=== PATIENT | female | born 1965 | race Caucasian/White ===

== ENCOUNTER 2021-03-09 18:05 | Inpatient (IN) | payer MEDICAID ==
[~2021-03-09] VITALS: Ht 167.6 cm; Wt 69.9 kg
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
--- NOTE | 2021-03-09 18:21 | RAD ---
Exam: CT head INDICATION: Unresponsive TECHNIQUE: Sequential axial images through the head were obtained without the administration of IV co ntrast. Exposure: One or more of the following in the visualized dose reduction techniques were utilized for this examination: 1. Automated exposure control 2. Adjustment of the MA and/or KV according to patient size 3. Use of iterative of reconstructive technique Comparisons: None FINDINGS: No focal parenchymal lesion or hemorrhage is identified. There is no midline shift or sulcal effaceme nt. Moderate patchy hypodensity in the periventricular white matter. No acute vascular territory infarcti on is identified. Reyes-white distinction is preserved. The ventricular system is within normal limits without compression hydrocephalus. The basal cisterns are well maintained. The visualized portions of the paranasal sinuses and mastoid air cells are well-pneumatized. No acute fractures. IMPRESSION: No acute hemorrhage. Moderate small vessel ischemic change technically age indeterminate without rece nt prior imaging. FOR INTERNAL CODING PURPOSES Critical result: Findings discussed with Clement at 03/09/2021 6:17 PM. RESULT CODE: (C) Electronically signed by: Miller Mena MD (03/09/2021 6:19 PM) CRISELDA
--- NOTE | 2021-03-09 18:36 | EKG ---
[address] [address] Test Date: 2021-03-09 Test Time: 18:08:06 Pat Name: LIZA ACE Department: Room: Gender: F Senior Interactive Developer: YESSICA : 1965 Requested By: SANTANA REED Order Number: [id number] Reading MD: Measurements Intervals [place] Rate: 64 P: 62 DE: 160 QRS: 264 QRSD: 124 T: 21 QT: 526 QTc: 548 Interpretive Statements SINUS RHYTHM LOW LIMB LEAD VOLTAGE LEFT ANTERIOR FASCICULAR BLOCK RIGHT BUNDLE BRANCH BLOCK BIFASCICULAR BLOCK CONSIDER RIGHT VENTRICULAR HYPERTROPHY ABNORMAL ECG RI6.02 No previous ECG available for comparison
[2021-03-09 18:41] LABS: BASO % 0 % (0-3); EOS # 0.2 x10^3/uL (0.0-0.7); EOS % 3 % (0-3); HEMATOCRIT 33.5 % (36.0-47.0); HEMOGLOBIN 11.6 g/dL (12.0-15.5); LYMPH # 2.6 x10^3/uL (1.0-4.8); LYMPH % 30 % (24-48); MEAN CORPUSCULAR HEMOGLOBIN 32 pg (25-35); MEAN CORPUSCULAR HGB CONC 35 g/dL (31-37); MEAN CORPUSCULAR VOLUME 93 fL (79-100); MONO # 0.7 x10^3/uL (0.0-1.1); MONO % 9 % (0-9); NEUT # 5.1 x10^3uL (1.8-7.7); NEUT % 59 % (31-73); PLATELET COUNT 280 x10^3/uL (140-400); RED BLOOD COUNT 3.59 x10^6/uL (3.50-5.40); RED CELL DISTRIBUTION WIDTH 15.6 % (11.5-14.5); WHITE BLOOD COUNT 8.7 x10^3/uL (4.0-11.0)
--- NOTE | 2021-03-09 18:49 | RAD ---
EXAM: AP View of the chest DATE: 03/09/2021 6:35 PM INDICATION: Reason: seizure, dyspnea / Spl. Instructions: / History: COMPARISON: No Prior FINDINGS: The heart is not enlarged. Mediastinal and hilar contours are normal. No focal parenchymal airspace opacity. No pleural effusion or pneumothorax. IMPRESSION: 1. No radiographic evidence for acute cardiopulmonary process. Electronically signed by: Chato Fajardo MD (03/09/2021 6:46 PM) SHEY
[2021-03-09 18:58] LABS: ANION GAP 12 (6-14); BLOOD UREA NITROGEN 15 mg/dL (7-20); CALCIUM 9.7 mg/dL (8.5-10.1); CARBON DIOXIDE 29 mmol/L (21-32); CHLORIDE 101 mmol/L (98-107); CREATININE 1.2 mg/dL (0.6-1.0); GFR 46.5; GLUCOSE 94 mg/dL (70-99); POTASSIUM 3.8 mmol/L (3.5-5.1); SODIUM 142 mmol/L (136-145)
[2021-03-09] MEDS: IV RINGERS SOLUTION,LACTATED 1,000 ML IV SCH (18:58)
[2021-03-09] MEDS ORDERED: ASPIRIN CHEWABLE 81 MG TABLET. PO ONE (19:00)
[2021-03-09 19:14] LABS: ALBUMIN 4.2 g/dL (3.4-5.0); ALK PHOS 62 U/L (46-116); ALT (SGPT) 56 U/L (14-59); AST (SGOT) 69 U/L (15-37); DIRECT BILIRUBIN 0.1 mg/dL (0.0-0.2); LIPASE 131 U/L (73-393); MAGNESIUM 2.4 mg/dL (1.8-2.4); TOTAL BILIRUBIN 0.4 mg/dL (0.2-1.0); TOTAL PROTEIN 7.3 g/dL (6.4-8.2)
[2021-03-09 19:15] LABS: PHENY < 0.5 mcg/mL (10.0-20.0)
[2021-03-09 19:29] LABS: BGAS PH 7.46 (7.35-7.45)
[2021-03-09] MEDS ORDERED: ASPIRIN 325 MG TABLET ONE (19:31)
[2021-03-09 19:40] LABS: BARBITURATES NEG (NEG); BENZODIAZEPINES NEG (NEG); CANNABINOIDS NEG (NEG); COCAINE NEG (NEG); METHADONE NEG (NEG); OPIATES NEG (NEG); PHENCYCLIDINE NEG (NEG)
[2021-03-09 19:42] LABS: AMPHETAMINE/METHAMPHETAMINE NEG (NEG); BILIRUBIN,URINE NEG (NEG); CLARITY,URINE CLEAR; COLOR,URINE AMBER; GLUCOSE,URINE NEG (NEG)
[2021-03-09 19:43] LABS: NITRITE,URINE NEG (NEG); UROBILINOGEN,URINE 0.2 mg/dL (0.2 mg/dL)
[2021-03-09 19:44] LABS: BACTERIA,URINE 0 /HPF (0-FEW); WBC,URINE RARE /HPF (0-4)
[2021-03-09] MEDS ORDERED: ASPIRIN 325 MG TABLET PO ONE (20:00)
[2021-03-09] MEDS ORDERED: IV NORMAL SALINE 100ML 100 ML ONE (20:39)
[2021-03-09] MEDS ORDERED: levETIRAcetam 500 MG/5 ML VIAL IV ONE (20:39)
[2021-03-09] MEDS ORDERED: ONDANSETRON PF 4 MG/2 ML VIAL. IVP PRN (20:45)
[2021-03-09] MEDS: IPRATRPIUM/ALBUTEROL 0.5/2.5MG 3 ML NEBU. NEB SCH (21:00)
[2021-03-09 23:30] VITALS: BP 133/74
[2021-03-10] MEDS ORDERED: BACI3.5O8 TOP (00:25)
[2021-03-10] MEDS ORDERED: EZET1TAB35 PO (00:47)
[2021-03-10] MEDS ORDERED: GABA600T7 PO (00:47)
[2021-03-10] MEDS ORDERED: DIAZ5TAB4 PO (00:47)
[2021-03-10] MEDS ORDERED: NAPR-695 PO (00:47)
[2021-03-10] MEDS ORDERED: MONT10TA80 PO (00:47)
[2021-03-10] MEDS ORDERED: FLUO20CA20 PO (00:47)
[2021-03-10] MEDS ORDERED: LEVO150T5 PO (00:47)
[2021-03-10] MEDS ORDERED: DULO60CA6 PO (00:47)
[2021-03-10] MEDS ORDERED: HYDR-2769 PO (00:47)
[2021-03-10] MEDS ORDERED: LACO200T PO ×2 (00:47→10:20)
[2021-03-10] MEDS ORDERED: METO50TA29 PO (00:47)
[2021-03-10] MEDS ORDERED: LEVE10007 PO (00:47)
[2021-03-10] MEDS: IV RINGERS SOLUTION,LACTATED 1,000 ML IV SCH (01:14)
[2021-03-10 06:21] VITALS: BP 123/73
[2021-03-10] MEDS: HYDROcodone/APAP 10/325 1 TAB TABLET PO PRN ×2 (07:41→17:34)
[2021-03-10 07:54] LABS: BASO # 0.1 x10^3/uL (0.0-0.2); BASO % 1 % (0-3); EOS # 0.3 x10^3/uL (0.0-0.7); EOS % 4 % (0-3); HEMATOCRIT 33.9 % (36.0-47.0); HEMOGLOBIN 11.5 g/dL (12.0-15.5); LYMPH # 2.1 x10^3/uL (1.0-4.8); LYMPH % 28 % (24-48); MEAN CORPUSCULAR HEMOGLOBIN 32 pg (25-35); MEAN CORPUSCULAR HGB CONC 34 g/dL (31-37); MEAN CORPUSCULAR VOLUME 94 fL (79-100); MONO # 0.6 x10^3/uL (0.0-1.1); MONO % 8 % (0-9); NEUT # 4.3 x10^3uL (1.8-7.7); NEUT % 59 % (31-73); PLATELET COUNT 271 x10^3/uL (140-400); RED BLOOD COUNT 3.61 x10^6/uL (3.50-5.40); RED CELL DISTRIBUTION WIDTH 15.8 % (11.5-14.5); WHITE BLOOD COUNT 7.4 x10^3/uL (4.0-11.0)
[2021-03-10] MEDS: IPRATRPIUM/ALBUTEROL 0.5/2.5MG 3 ML NEBU. NEB SCH (08:00)
[2021-03-10] MEDS ORDERED: ACET325T21 PO (10:20)
[2021-03-10] MEDS ORDERED: DOXY100C2 PO (10:20)
[2021-03-10] MEDS ORDERED: DIVA500T17 PO (10:20)
[2021-03-10] MEDS ORDERED: SENN8.6T11 PO (10:20)
[2021-03-10] MEDS ORDERED: IPRATRPIUM/ALBUTEROL 0.5/2.5MG 3 ML NEBU. NEB PRN (11:00)
[2021-03-10 11:21] VITALS: BP 143/73
[2021-03-10] MEDS ORDERED: ACETAMINOPHEN 325 MG TABLET PO PRN (12:15)
[2021-03-10 13:08] LABS: CALCIUM 8.7 mg/dL (8.5-10.1); CREATININE 1.1 mg/dL (0.6-1.0); GFR 51.4; POTASSIUM 3.6 mmol/L (3.5-5.1)
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
[2021-03-10] MEDS: GABAPENTIN 300 MG CAPSULE. PO SCH ×2 (15:54→20:20)
[2021-03-10] MEDS: diazePAM 5 MG TABLET. PO SCH ×2 (15:54→20:21)
[2021-03-10 16:21] VITALS: BP 135/73
[2021-03-10 19:25] VITALS: BP 114/64
[2021-03-10] MEDS: LACOSAMIDE 50 MG TABLET PO SCH (20:20)
[2021-03-10] MEDS: DIVALPROEX SODIUM 250 MG TABLET.DR. PO SCH (20:20)
[2021-03-10] MEDS: levETIRAcetam 500 MG TABLET PO SCH (20:21)
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
[2021-03-10] MEDS ORDERED: SIMVASTATIN PO SCH (21:00)
[2021-03-10] MEDS ORDERED: SIMVASTATIN 40 MG TABLET. PO SCH (21:00)
[2021-03-10] MEDS ORDERED: EZETIMIBE PO SCH (21:00)
[2021-03-10] MEDS ORDERED: EZETIMIBE 10 MG TABLET PO SCH (21:00)
[2021-03-11] MEDS: HYDROcodone/APAP 10/325 1 TAB TABLET PO PRN (05:27)
[2021-03-11 05:45] VITALS: BP 127/71
[2021-03-11] MEDS ORDERED: LEVOTHYROXINE 137 MCG TABLET PO SCH (06:00)
[2021-03-11] MEDS ORDERED: SENNOSIDES 8.6 MG TABLET PO SCH (09:00)
[2021-03-11] MEDS: diazePAM 5 MG TABLET. PO SCH (09:17)
[2021-03-11] MEDS: GABAPENTIN 300 MG CAPSULE. PO SCH (09:17)
[2021-03-11] MEDS: levETIRAcetam 500 MG TABLET PO SCH (09:17)
[2021-03-11] MEDS: LACOSAMIDE 50 MG TABLET PO SCH (09:18)
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
[2021-03-11] MEDS: DIVALPROEX SODIUM 250 MG TABLET.DR. PO SCH (10:08)
[2021-03-11] MEDS ORDERED: LEVE500T56 PO (10:08)
[2021-03-11 10:43] VITALS: BP 147/74
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
--- NOTE | 2021-03-12 02:57 | PN ---
DATE: 03/11/2021 SUBJECTIVE: The patient denies any new medical or neurological complaints. She has not had seizure since admission. The patient has been very anxious and paranoid this morning. OBJECTIVE: GENERAL: Well-developed, well-nourished female, in no acute distress. VITAL SIGNS: Blood pressure 127/71, respiratory rate 18, pulse is 48, oxygen saturation is 95% on room air and temperature is 97.6. HEENT: Normocephalic, atraumatic, otherwise unremarkable. NECK: Supple. Negative for carotid bruit, lymphadenopathy or thyromegaly. LUNGS: Lung sounds clear to A and P. CARDIOVASCULAR: Regular rate and rhythm. Normal S1, S2. There is no S3, S4 or murmur. ABDOMEN: Soft. Bowel sounds positive. EXTREMITIES: Negative for cyanosis, clubbing or pedal edema. NEUROLOGICAL: Mental status: The patient is alert and oriented x 2. The speech is fluent. There is no language dysfunctions. Memory, judgment and abstracting thinkings are fair. The patient denies hallucination or delusion. The cranial nerves are grossly intact except for the right hemianopsia. Motor examination revealed left hemiparesis and left hemisensory deficits. Deep tendon reflexes were symmetric and hypoactive with absent Achilles responses. Gait not tested. IMPRESSION: 1. Breakthrough seizure. The patient has longstanding history of a seizure, probably due to a previous stroke. 2. Multiple medical problems include diabetes mellitus, question multiple sclerosis, hypertension, hyperlipidemia, stroke with left hemiparesis. RECOMMENDATION: Continue with current medical care initiated by Dr. Solis. FREDDIE/JOSH/DEBBIE DR: Sybil TID: [id number]
== END 2021-03-11 13:05 | disposition home or self-care (01) | DRG 101 ==
LOC: EDBD 18:05 → ER 18:05 → 1 SOUTH 20:36
PROVIDERS: ADMIT Internal Medicine; ATTEND Internal Medicine
DX: G40.909 Epilepsy, unspecified, not intractable, without status epilepticus (principal); I69.354 Hemiplegia and hemiparesis following cerebral infarction affecting left non-dominant side; F17.210 Nicotine dependence, cigarettes, uncomplicated; I10 Essential (primary) hypertension; E11.42 Type 2 diabetes mellitus with diabetic polyneuropathy; E03.9 Hypothyroidism, unspecified; G35 Multiple sclerosis; E78.5 Hyperlipidemia, unspecified; D63.8 Anemia in other chronic diseases classified elsewhere; M41.9 Scoliosis, unspecified; M81.0 Age-related osteoporosis without current pathological fracture; R13.10 Dysphagia, unspecified; Z90.49 Acquired absence of other specified parts of digestive tract; Z93.3 Colostomy status; Z88.5 Allergy status to narcotic agent; Z91.19 Patient's noncompliance with other medical treatment and regimen; Z91.14 Patient's other noncompliance with medication regimen; Z90.710 Acquired absence of both cervix and uterus; Z85.038 Personal history of other malignant neoplasm of large intestine; Z80.7 Family history of other malignant neoplasms of lymphoid, hematopoietic and related tissues; Z20.822 Contact with and (suspected) exposure to COVID-19
CPT/HCPCS: 36415; 51702; 70450; 71045; 80048; 80076; 80185; 80307; 81001; 82550; 82803; 82947; 83605; 83690; 83735; 83880; 84443; 84484; 85025; 85379; 85610; 85730; 87040; 93005; 96365; 96375; G0480; J1953; J2060; J7120; U0003; 97116; 97530; 99285-25

== ENCOUNTER 2021-03-14 17:21 | Emergency (ER) | payer MEDICAID ==
[~2021-03-14] VITALS: Ht 167.6 cm; Wt 69.9 kg
[~2021-03-14 17:21] MED LIST: ACET325T21 PO; BACI3.5O8 TOP; DIAZ5TAB4 PO; DIVA500T17 PO; DOXY100C2 PO; DULO60CA6 PO; EZET1TAB35 PO; FLUO20CA20 PO; GABA600T7 PO; HYDR-2769 PO; LACO200T PO; LEVE10007 PO; LEVE500T56 PO; LEVO150T5 PO; METO50TA29 PO; MONT10TA80 PO; NAPR-695 PO; SENN8.6T11 PO
[2021-03-14] MEDS ORDERED: IV NORMAL SALINE 1,000ML 1,000 ML IV ONE (18:00)
--- NOTE | 2021-03-14 18:26 | RAD ---
XR CHEST 1V History: Reason: abdominal pain / Spl. Instructions: / History: Comparison: March 09, 2021 Findings: No consolidation or pleural effusion. Normal heart size. No pneumothorax. Impression: 1. No acute cardiopulmonary process. Electronically signed by: Ishmael Araujo DO (03/14/2021 6:23 PM) [facility]
[2021-03-14 18:39] LABS: BASO % 0 % (0-3); EOS # 0.2 x10^3/uL (0.0-0.7); EOS % 2 % (0-3); HEMOGLOBIN 11.7 g/dL (12.0-15.5); LYMPH # 2.2 x10^3/uL (1.0-4.8); LYMPH % 22 % (24-48); MEAN CORPUSCULAR HEMOGLOBIN 32 pg (25-35); MEAN CORPUSCULAR HGB CONC 34 g/dL (31-37); MEAN CORPUSCULAR VOLUME 95 fL (79-100); MONO # 0.5 x10^3/uL (0.0-1.1); MONO % 5 % (0-9); NEUT % 71 % (31-73); PLATELET COUNT 256 x10^3/uL (140-400); RED BLOOD COUNT 3.67 x10^6/uL (3.50-5.40); RED CELL DISTRIBUTION WIDTH 15.9 % (11.5-14.5); WHITE BLOOD COUNT 9.9 x10^3/uL (4.0-11.0)
--- NOTE | 2021-03-14 18:39 | RAD ---
CT ABDOMEN+PELVIS WO History: Reason: abdominal pain / Spl. Instructions: / History: Technique: Noncontrast examination of the abdomen and pelvis. Coronal and sagittal reconstructions we re performed. Exposure: One or more of the following individualized dose reduction techniques were utilized for thi s examination: 1. Automated exposure control 2. Adjustment of the mA and/or kV according to patient size 3. Use of iterative reconstruction technique. Comparison: March 05, 2021 Findings: Lower chest: No consolidation or pleural effusion. Abdomen and pelvis: The liver, spleen, adrenal glands, and pancreas are unremarkable. Prior cholecyst ectomy. Lobulated appearance of the right kidney with multiple cortical defects, may relate to prior insult o r infarct. Nonobstructing right intrarenal calculi. No hydronephrosis. Mild urinary bladder wall thic kening. Small pelvic free fluid. Prior hysterectomy. Left lower quadrant colostomy. Normal appendix. No evidence of bowel obstruction. Parastomal hernia c ontaining loops of small bowel. No pneumatosis. No pneumoperitoneum. Small inguinal lymph nodes, unch anged. Anterior abdominal wall subcutaneous fat infiltration, similar compared to prior. Atheromatous plaque throughout the nonaneurysmal abdominal aorta and branch vessels. Bones: No pathologic osseous lesions. Impression: 1. Mild urinary bladder wall thickening. Correlate for cystitis. 2. Small pelvic free fluid. 3. Left lower quadrant colostomy with parastomal hernia containing small bowel. No evidence of small bowel obstruction. 4. Nonobstructed right intrarenal calculi. Electronically signed by: Ishmael Araujo DO (03/14/2021 6:37 PM) [facility]
[2021-03-14 18:52] LABS: ALBUMIN 3.9 g/dL (3.4-5.0); ALBUMIN/GLOBULIN RATIO 1.1 (1.0-1.7); CALCIUM 8.9 mg/dL (8.5-10.1); CREATININE 1.1 mg/dL (0.6-1.0); GFR 51.4; POTASSIUM 3.9 mmol/L (3.5-5.1); TOTAL BILIRUBIN 0.2 mg/dL (0.2-1.0); TOTAL PROTEIN 7.3 g/dL (6.4-8.2)
--- NOTE | 2021-03-14 18:57 | PHYS DOC ---
Past History Past Medical History: Cancer, Seizure Past Surgical History: No Surgical History Additional Past Surgical Histo: PT UNABLE TO RESPOND Alcohol Use: None General Adult EDM: Chief Complaint: ABDOMINAL PAIN HPI: HPI: Patient is a 55-year-old female who presents with abdominal pain. Patient was seen and Dr. Mari's office and sent to the emergency room for admission. "I was admitted a few days ago and saw Dr. Du who told may need to follow-up with my PCP". "When I saw Dr. Mari today for my follow-up he told me I needed to be admitted to the hospital and have hernia surgery". Review of Systems: Review of Systems: Constitutional: Denies fever or chills Eyes: Denies change in visual acuity HENT: Denies nasal congestion or sore throat Respiratory: Denies cough or shortness of breath Cardiovascular: Denies chest pain or edema GI: Denies abdominal pain, nausea, vomiting, bloody stools or diarrhea : Denies dysuria Musculoskeletal: Denies back pain or joint pain Integument: Denies rash Neurologic: Denies headache, focal weakness or sensory changes Endocrine: Denies polyuria or polydipsia Lymphatic: Denies swollen glands Psychiatric: Denies depression or anxiety Current Medications: Current Meds: Current Medications Medications (Trade) Dose Ordered Sig/Stella Start Time Stop Time Status Last Admin Dose Admin Sodium Chloride 1,000 ml @ 1,000 mls/hr 1X ONCE 03/14/21 18:00 03/14/21 18:59 03/14/21 18:43 1,000 MLS/HR Allergies: Allergies: Allergies Coded Allergies Type Severity Reaction Last Updated Verified adhesive Allergy Intermediate 03/10/21 Yes morphine Allergy Intermediate 03/10/21 Yes Physical Exam: PE: Constitutional: Well developed, well nourished, no acute distress, non-toxic appearance. [] HENT: Normocephalic, atraumatic, bilateral external ears normal, oropharynx moist, no oral exudates, nose normal. [] Eyes: PERRLA, EOMI, conjunctiva normal, no discharge. [] Neck: Normal range of motion, no tenderness, supple, no stridor. [] Cardiovascular:Heart rate regular rhythm, no murmur [] Lungs & Thorax: Bilateral breath sounds clear to auscultation [] Abdomen: Bowel sounds normal, soft, no tenderness, no masses, no pulsatile masses. [] Skin: Warm, dry, no erythema, no rash. [] Back: No tenderness, no CVA tenderness. [] Extremities: No tenderness, no cyanosis, no clubbing, ROM intact, no edema. [] Neurologic: Alert and oriented X 3, normal motor function, normal sensory function, no focal deficits noted. [] Psychologic: Affect normal, judgement normal, mood normal. [] Current Patient Data: Labs: Laboratory Tests Test 03/14/21 18:21 White Blood Count 9.9 x10^3/uL (4.0-11.0) Red Blood Count 3.67 x10^6/uL (3.50-5.40) Hemoglobin 11.7 g/dL (12.0-15.5) L Hematocrit 35.0 % (36.0-47.0) L Mean Corpuscular Volume 95 fL (79-100) Mean Corpuscular Hemoglobin 32 pg (25-35) Mean Corpuscular Hemoglobin Concent 34 g/dL (31-37) Red Cell Distribution Width 15.9 % (11.5-14.5) H Platelet Count 256 x10^3/uL (140-400) Neutrophils (%) (Auto) 71 % (31-73) Lymphocytes (%) (Auto) 22 % (24-48) L Monocytes (%) (Auto) 5 % (0-9) Eosinophils (%) (Auto) 2 % (0-3) Basophils (%) (Auto) 0 % (0-3) Neutrophils # (Auto) 7.0 x10^3uL (1.8-7.7) Lymphocytes # (Auto) 2.2 x10^3/uL (1.0-4.8) Monocytes # (Auto) 0.5 x10^3/uL (0.0-1.1) Eosinophils # (Auto) 0.2 x10^3/uL (0.0-0.7) Basophils # (Auto) 0.0 x10^3/uL (0.0-0.2) Vital Signs: Vital Signs Date Time Temp Pulse Resp B/P (MAP) Pulse Ox O2 Delivery O2 Flow Rate FiO2 03/14/21 18:45 98.4 78 16 141/64 (89) 98 Room Air EKG: EKG: [] Radiology/Procedures: Radiology/Procedures: [] CT ABDOMEN+PELVIS WO History: Reason: abdominal pain / Spl. Instructions: / History: Technique: Noncontrast examination of the abdomen and pelvis. Coronal and sagittal reconstructions were performed. Exposure: One or more of the following individualized dose reduction techniques were utilized for this examination: 1. Automated exposure control 2. Adjustment of the mA and/or kV according to patient size 3. Use of iterative reconstruction technique. Comparison: March 05, 2021 Findings: Lower chest: No consolidation or pleural effusion. Abdomen and pelvis: The liver, spleen, adrenal glands, and pancreas are unremarkable. Prior cholecystectomy. Lobulated appearance of the right kidney with multiple cortical defects, may relate to prior insult or infarct. Nonobstructing right intrarenal calculi. No hydronephrosis. Mild urinary bladder wall thickening. Small pelvic free fluid. Prior hysterectomy. Left lower quadrant colostomy. Normal appendix. No evidence of bowel obstruction. Parastomal hernia containing loops of small bowel. No pneumatosis. No pneumoperitoneum. Small inguinal lymph nodes, unchanged. Anterior abdominal wall subcutaneous fat infiltration, similar compared to prior. Atheromatous plaque throughout the nonaneurysmal abdominal aorta and branch vessels. Bones: No pathologic osseous lesions. Impression: 1. Mild urinary bladder wall thickening. Correlate for cystitis. 2. Small pelvic free fluid. 3. Left lower quadrant colostomy with parastomal hernia containing small bowel. No evidence of small bowel obstruction. 4. Nonobstructed right intrarenal calculi. XR CHEST 1V History: Reason: abdominal pain / Spl. Instructions: / History: Comparison: March 09, 2021 Findings: No consolidation or pleural effusion. Normal heart size. No pneumothorax. Impression: 1. No acute cardiopulmonary process. Electronically signed by: Ishmael Araujo DO (03/14/2021 6:23 PM) [facility] Heart Score: C/O Chest Pain: No Risk Factors: Risk Factors: DM, Current or recent (<one month) smoker, HTN, HLP, family history of CAD, obesity. Risk Scores: Score 0 - 3: 2.5% MACE over next 6 weeks - Discharge Home Score 4 - 6: 20.3% MACE over next 6 weeks - Admit for Clinical Observation Score 7 - 10: 72.7% MACE over next 6 weeks - Early Invasive Strategies Course & Med Decision Making: Course & Med Decision Making Pertinent Labs and Imaging studies reviewed. (See chart for details) [] 55-year-old female presents with abdominal pain. Patient was discharged after being seen by Dr. Du as an inpatient. Patient followed up with PCP today who told her to come to the emergency room to have a CT done. CT of her a bdomen was negative for bowel obstruction or any acute abnormalities. Patient is concerned about her hernia and under the impression she was going to be transferred to [place] or to have hernia repaired. Discussed CT results with patient and explained there were no acute reasons to have hernia surgery on that she would need to be referred to a surgeon on an outpatient basis. Patient is giving the impression that she wants to be admitted to the hospital to avoid being at her sisters. Patient's urine is positive for infection. Patient given 1 g of Rocephin in the emergency room to treat UTI. All other labs are unremarkable. Patient is hemodynamically stable. Patient is appreciative and okay with discharge plan. Luz Maria Disclaimer: Luz Maria Disclaimer: This electronic medical record was generated, in whole or in part, using a voice recognition dictation system. Departure Departure: Impression: Primary Impression: UTI (urinary tract infection) Qualified Codes: N30.00 - Acute cystitis without hematuria Disposition: HOME / SELF CARE / HOMELESS Condition: STABLE Referrals: ARIA,SONIA L MD (PCP) Patient Instructions: Urinary Tract Infection, [id number] Additional Instructions: You were seen in the emergency room due to concerns of your hernia. CT results are negative for any acute abnormalities at this time. This is something that you will need to follow-up with a surgeon on an outpatient basis. All of your other labs were unremarkable. Your urine was positive for infection. You were given medication in the emergency room to treat UTI. Please follow-up with Dr. Mari for further management and referral for surgery. Return to the em ergency room if you have worsening symptoms or concerns. EMERGENCY DEPARTMENT GENERAL DISCHARGE INSTRUCTIONS Thank you for coming to [facility] (ED) today and trusting us with you care. We trust that you had a positivie experience in our Emergency Department. If you wish to speak to the department management, you may call the director at [phone]. YOUR FOLLOW UP INSTRUCTIONS ARE FOLLOWS: 1. Do you have a private Doctor? If you do not have a private doctor, please ask for a resource list of physicians or clinics that may be able to assist you with follow up care. 2. The Emergency Physician has interpreted your x-rays. The X-Ray specialist will also review them. If there is a change in the findings, you will be notified in 48 hours when at all possible. 3. A lab test or culture has been done, your results will be reviewed and you will be notified if you need a change in treatment. ADDITIONAL INSTRUCTIONS AND INFORMATION: 1. Your care today has been supervised by a physician who is specially trained in emergency care. Many problems require more than one evaluation for a complete diagnosis and treatment. We recommend that you schedule your follow up appointment as recommended to ensure complete treatment of you illness or injury. If you are unable to obtain follow up care and continue to have a problem, or if your condition worsens, we recommend that you return to the ED. 2. We are not able to safely determine your condition over the phone nor are we able to give sound medical advice over the phone. For these safety reasons, if you call for medical advice we will ask you to come to the ED for further evaluation. 3. If you have any questions regarding these discharge instructions please call the ED at [phone]. SAFETY INFORMATION: In the interest of safety, wellness, and injury prevention; we encourage you to wear your sealbelt, if you smoke; quite smoking, and we encourage family to use a protective helmet for bicycling and other sporting events that present an increased risk for head injury. IF YOUR SYMPTOMS WORSEN OR NEW SYMPTOMS DEVELOP, OR YOU HAVE CONCERNS ABOUT YOUR CONDITION; OR IF YOUR CONDITION WORSENS WHILE YOU ARE WAITING FOR YOUR FOLLOW UP APPOINTMENT; EITHER CONTACT YOUR PRIMARY CARE DOCTOR, THE PHYSICIAN WHOSE NAME AND NUMBER YOU WERE GIVEN, OR RETURN TO THE ED IMMEDIATELY. GERARD ALFONSO APRN Mar 14, 2021 18:57
[2021-03-14 19:58] LABS: BILIRUBIN,URINE NEG (NEG); CLARITY,URINE CLOUDY; COLOR,URINE YELLOW; GLUCOSE,URINE NEG (NEG)
[2021-03-14 19:59] LABS: NITRITE,URINE POS (NEG); UROBILINOGEN,URINE 0.2 mg/dL (0.2 mg/dL)
[2021-03-14 20:13] LABS: WBC,URINE THTC /HPF (0-4)
[2021-03-14 20:14] LABS: BACTERIA,URINE MANY /HPF (0-FEW); SQUAMOUS EPITHELIAL CELL,UR OCC /LPF
[2021-03-14] MEDS ORDERED: cefTRIAXone IM 1 GM VIAL IM ONE (20:30)
[2021-03-14 21:46] VITALS: BP 122/66
--- NOTE | 2021-03-14 23:29 | EKG ---
[address] [address] Test Date: 2021-03-14 Test Time: 18:49:32 Pat Name: LIZA ACE Department: Room: Gender: F Tar Roofer: MAYRA : 1965 Requested By: GERARD ALFONSO Order Number: [id number] Reading MD: Measurements Intervals [place] Rate: 54 P: 62 SC: 164 QRS: -35 QRSD: 78 T: -62 QT: 548 QTc: 522 Interpretive Statements SINUS RHYTHM LOW LIMB LEAD VOLTAGE CONSIDER LEFT VENTRICULAR HYPERTROPHY QRS(T) CONTOUR ABNORMALITY CONSIDER ANTEROSEPTAL MYOCARDIAL DAMAGE ST & T ABNORMALITY, CONSIDER LATERAL ISCHEMIA OR LEFT VENTRICULAR STRAIN T ABNORMALITY IN ANTERIOR LEADS ABNORMAL ECG RI6.02 No previous ECG available for comparison
== END 2021-03-14 21:49 | disposition home or self-care (01) ==
LOC: ER 17:21
DX: N39.0 Urinary tract infection, site not specified (principal); Z88.6 Allergy status to analgesic agent
CPT/HCPCS: 36415; 71045; 74176; 80053; 81001; 83605; 83690; 85025; 87086; 93005; 96360; 96361; 96372; 99285; J0696; J7030